=== PATIENT | male | born 1975 | race Caucasian/White ===

== ENCOUNTER 2022-05-23 22:14 | Emergency (ER) | payer OTHER ==
[2022-05-23 22:49] VITALS: BP 151/92; PULSE 70
[2022-05-23] MEDS ORDERED: TORAdol 30 mg Injection IM ONE (23:08)
[2022-05-23] MEDS ORDERED: Norflex 60 MG/2 ML IM ONE (23:09)
--- NOTE | 2022-05-23 23:10 | ERPHSYRPT ---
- History of Present Illness Source: patient Exam Limitations: no limitations Patient Subjective Stated Complaint: pt states he started having back pain that radiates down through left hip through left leg april 07 when he was riding a 20 inch bike. pain comes and goes since then. pain went away but patient has consistently had heaviness in left foot since april 07, now pain is worse Triage Nursing Assessment: pt c/o weakness and heaviness of lt leg from back pain that radiates through left hip. stregnth is equal in both legs. pt states when pain is bad, he cannot walk well. pt states when he walks pain is 10. Physician History: 46 yo wm w L paraspinous pain w radiation to LLE x 1-2 hours. 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 Pt has been having some lumbar pain since April when he tried to ride a small bike. Pain is 5/10, sharp, and worse w movement/bending. He denies incontinence of stool- urine/fever/dysuria/hematuria/lower extremity weakness. Timing/Duration: today Method of Injury: unknown Quality: sharp Back Pain Location: paraspinous muscles (L paraspinous) Back Pain Radiation: buttocks, upper legs Severity of Pain-Max: severe Severity of Pain-Current: moderate Modifying Factors: Improves With: movement Associated Symptoms: lower back pain, No fever, No chills, No sweating, No urinary incontinence, No loss of bowel control, No constipation, No nausea, No vomiting, No problems urinating, No light-headedness, No dizziness, No numbness in legs/feet, No weakness, No sensory/motor loss, No tingling in legs/feet, No muscle spasms Previous symptoms: no prior history Allergies/Adverse Reactions: No Known Drug Allergies Allergy (Unverified 05/23/22 23:11) Home Medications: Amlodipine Besylate 5 mg [Norvasc 5 mg] 5 mg PO DAILY 05/23/22 [History] Omeprazole 20 mg PO 05/23/22 [History] Hx Tetanus, Diphtheria Vaccination/Date Given: No Hx Influenza Vaccination/Date Given: No Hx Pneumococcal Vaccination/Date Given: No Immunizations Up to Date: Yes Travel Risk - International Travel Have you traveled outside of the country in past 3 weeks: No - Coronavirus Screening Are you exhibiting any of the following symptoms?: No Close contact with a COVID-19 positive Pt in past 14-21 Days: No - Vaccine Status Have you recieved a Covid-19 vaccination: Yes Data Integration Developer: [employer] - Review of Systems Constitutional: No Symptoms Eyes: No Symptoms Ears, Nose, & Throat: No Symptoms Respiratory: No Symptoms Cardiac: No Symptoms Abdominal/Gastrointestinal: No Symptoms Genitourinary Symptoms: No Symptoms Musculoskeletal: No Symptoms, Back Pain Skin: No Symptoms Neurological: No Symptoms Psychological: No Symptoms Endocrine: No Symptoms Hematologic/Lymphatic: No Symptoms Immunological/Allergic: No Symptoms - Past Medical History Pertinent Past Medical History: No - Past Surgical History Past Surgical History: Yes Gastrointestinal: Cholecystectomy - Social History Smoking Status: Never smoker Exposure to second hand smoke: No Drug Use: none Patient Lives Alone: No - Nursing Vital Signs Nursing Vital Signs: Initial Vital Signs Temperature 96.7 F 05/23/22 22:36 Pulse Rate 70 05/23/22 22:36 Respiratory Rate 18 05/23/22 22:36 Blood Pressure 151/92 05/23/22 22:36 O2 Sat by Pulse Oximetry 97 05/23/22 22:36 Pain Scale Pain Intensity [Left Back] 2 Pain Intensity 4 Hypertensive - Physical Exam General Appearance: no apparent distress Eye Exam: PERRL/EOMI, eyes nml inspection Ears, Nose, Throat Exam: normal ENT inspection, TMs normal, pharynx normal, moist mucous membranes Neck Exam: normal inspection, non-tender, supple, full range of motion, No meningismus, No mass, No Brudzinski, No Kernig's Respiratory Exam: normal breath sounds, lungs clear, airway intact, No respiratory distress Cardiovascular Exam: regular rate/rhythm, normal heart sounds, normal peripheral pulses, capillary refill <2 sec, No murmur Gastrointestinal Exam: soft, normal bowel sounds, No tenderness Back Exam: point tenderness (TTP L paraspinous muscles/Pain w stiff leg raises on L/reflexes symmetric/Good pedal pulse, distal sensation, and capillary return) Extremity Exam: normal inspection, normal range of motion Peripheral Pulses: carotid (R): 2+, carotid (L): 2+ Neurologic Exam: alert, oriented x 3, cooperative, night shift II-XII nml as tested, normal mood/affect, nml cerebellar function, nml station & gait, sensation nml, No motor deficits, No sensory deficit Skin Exam: normal color, warm, dry, No rash Lymphatic Exam: No adenopathy SpO2 Interpretation: normal SpO2: 97 O2 Delivery: Room Air - Course Nursing assessment & vital signs reviewed: Yes Ordered Tests: Medication Summary Discontinued Medications Generic Name Dose Route Start Last Admin Trade Name Freq PRN Reason Stop Dose Admin Ketorolac Tromethamine 30 mg 05/23/22 23:08 05/23/22 23:19 Ketorolac Tromethamine 30 Mg/Ml Inj IM 05/23/22 23:09 30 mg STAT ONE Administration Ketorolac Tromethamine Confirm 05/23/22 23:16 Ketorolac Tromethamine 30 Mg/Ml Inj Administered 05/23/22 23:17 Dose 30 mg .ROUTE .STK-MED ONE Orphenadrine Citrate 60 mg 05/23/22 23:09 05/23/22 23:19 Orphenadrine Citrate 60 Mg/2 Ml Vial IM 05/23/22 23:10 60 mg STAT ONE Administration Orphenadrine Citrate Confirm 05/23/22 23:16 Orphenadrine Citrate 60 Mg/2 Ml Vial Administered 05/23/22 23:17 Dose 60 mg .ROUTE .STK-MED ONE - Progress Progress: improved Progress Note: 05/23/22 23:25 30mg IM Toradol/60mg IM Norflex Counseled pt/family regarding: diagnosis, need for follow-up - Departure Departure Disposition: Home Clinical Impression: Sciatica Condition: Stable Critical Care Time: No Referrals: MONTANA GOMEZ, ERGONOMIST [Primary Care Provider] - Follow up/PCP as directed Instructions: Low Back Pain (DC), Sciatica (DC) Additional Instructions: Rest/heat/massage Toradol/Norflex as needed No lifting over 15 pounds for 1 week Follow up with your family Prescriptions: Methylprednisolone 4 mg [Medrol 4 mg] 4 mg PO DAILY #5 tablet Orphenadrine Citrate 100 mg [Norflex 100 MG Tablet] 100 mg PO BID PRN PRN #14 tab PRN Reason: Pain Ketorolac Trometh 10 mg Tab [TORAdol 10 MG TABLET] 10 mg PO TID PRN PRN #10 tablet PRN Reason: Pain
[2022-05-23] MEDS ORDERED: Norflex 60 MG/2 ML ONE (23:16)
[2022-05-23] MEDS ORDERED: TORAdol 30 mg Injection ONE (23:16)
[2022-05-23 23:30] VITALS: O2SAT 97
== END 2022-05-23 23:37 | disposition home or self-care (01) ==
LOC: ED 22:14
DX: M54.32 Sciatica, left side (principal); M54.50 Low back pain, unspecified; Z79.899 Other long term (current) drug therapy; Z79.52 Long term (current) use of systemic steroids
CPT/HCPCS: 96372; 99283; J1885; J2360